=== PATIENT | female | born 1945 | race Caucasian/White ===

== ENCOUNTER 2021-10-04 05:23 | Inpatient (IN) | payer MEDICARE ==
[~2021-10-04] VITALS: Ht 157.5 cm; Wt 54.0 kg
--- NOTE | 2021-10-04 05:27 | PHYS DOC ---
General Adult HPI: HPI: ".. I ve been short of breath.. since saturday.. feel like I got a fever.. some headache.. just rajni hurt all over..." Patient is a 76 year old female who presents with above hx and complaints coughing, hoarse voice, shortness of air, fever, chills, malaise, arthralgia, myalgia, cephalgia,and sore throat since Saturday10/02/21. Patient has completed flu vaccination as well as Moderna x 3. No hx of pneumovax. Pt. denies any recent change in medications. Patient has been compliant with her cardiac meds. Patient has past medical history of hypertension CHF, cardiomyopathy, coronary artery disease, elevated cholesterol, psoriasis, arthritis,, COPD, hypothyroid . Pt. patient denies any recent travel, significant ill contacts or changes in her baseline medications. Patient. normally follows with Dr. Cedeno and Dr. Fernández for cardiology. (FEDERICO LICONA MD) Review of Systems: Review of Systems: Constitutional: Complains of fever and chills Eyes: Denies change in visual acuity HENT: Complains of nasal congestion and sore throat Respiratory: Complains of cough and shortness of breath Cardiovascular: Denies chest pain or edema GI: Denies abdominal pain, nausea, vomiting, bloody stools or diarrhea : Denies dysuria Musculoskeletal: Complains of myalgia, arthralgia and malaise Integument: Denies rash Neurologic: Mild headache. Denies, focal weakness or sensory changes Endocrine: Denies polyuria or polydipsia Lymphatic: Denies swollen glands Psychiatric: Denies depression or anxiety (FEDERICO LICONA MD) Family History: Family History: Noncontributory to presentation (FEDERICO LICONA MD) Current Medications: Current Meds: See nursing for home meds (FEDERICO LICONA MD) Allergies: Allergies: See nursing (FEDERICO LICONA MD) Physical Exam: PE: Constitutional: Moderate acute distress, non-toxic appearance. [] HENT: Normocephalic, atraumatic, bilateral external ears normal, oropharynx moist, injected pharynx, no oral exudates, nose swollen turbinates and clear rhinorrhea Eyes: PERRLA, EOMI, conjunctiva normal, no discharge. [] Neck: Normal range of motion, no tenderness, supple, no stridor. [] Cardiovascular: Tachycardia heart rate regular rhythm, no murmur. PMI to left Lungs & Thorax: Bilateral breath sounds equal apex with scattered wheezes throughout on auscultation []. Base crackles and rhonchi Rt > Lt. Abdomen: Bowel sounds normal, soft, no tenderness, no masses, no pulsatile masses. Old surgery scars. Skin: Warm, dry, no erythema, no rash. Poor turgor. Back: No tenderness, no CVA tenderness. [] Extremities: No tenderness, no cyanosis, no clubbing, ROM intact, no edema. No cording appreciated Neurologic: Alert and oriented X 3, moves all extremities on request, has distal sensory,, no focal deficits noted. [] Psychologic: Affect anxious, judgement normal, mood normal. [] (FEDERICO LICONA MD) EKG: EKG: Pending at shift change.[] (FEDERICO LICONA MD) EKG: EKG is interpreted at 0657 Rhythm is sinus Rate is 87 bpm Shipman is left LBBB (old) No STEMI (LINDA AVELAR DO) Radiology/Procedures: Radiology/Procedures: Pending at shift change.[] [place] [address] IMAGING REPORT Signed PATIENT: EMY LEOS ACCOUNT: [id number] : 1945 LOCATION: ER AGE: 76 SEX: F EXAM STATUS: REG ER ORD. PHYSICIAN: LINDA AVELAR DO REASON: cough PROCEDURE: PORTABLE CHEST 1V EXAM: AP View of the chest DATE: 10/04/2021 6:40 AM INDICATION: Reason: cough / Spl. Instructions: / History: COMPARISON: No Prior FINDINGS: The heart is not enlarged. Mediastinal and hilar contours are normal. Patchy bibasilar airspace opacities likely atelectasis or developing consolidation. No pleural effusion or pneumothorax. IMPRESSION: Patchy bibasilar airspace opacities likely atelectasis or developing consolidation. This is greater in the right lung base. Electronically signed by: Randell Norman MD (10/04/2021 6:52 AM) MAGARY DICTATED AND SIGNED BY: RANDELL NORMAN MD DATE: 10/04/21651 CC: ЕКАТЕРИНА CEDENO MD; LINDA AVELAR DO ~ (FEDERICO LICONA MD) Radiology/Procedures: IMAGING REPORT Signed PATIENT: EMY LEOS ACCOUNT: [id number] : 1945 LOCATION: ER AGE: 76 SEX: F EXAM STATUS: REG ER ORD. PHYSICIAN: LINDA AVELAR DO REASON: cough PROCEDURE: PORTABLE CHEST 1V EXAM: AP View of the chest DATE: 10/04/2021 6:40 AM INDICATION: Reason: cough / Spl. Instructions: / History: COMPARISON: No Prior FINDINGS: The heart is not enlarged. Mediastinal and hilar contours are normal. Patchy bibasilar airspace opacities likely atelectasis or developing consolidation. No pleural effusion or pneumothorax. IMPRESSION: Patchy bibasilar airspace opacities likely atelectasis or developing consolidation. This is greater in the right lung base. Electronically signed by: Randell Norman MD (10/04/2021 6:52 AM) MAGRAY DICTATED AND SIGNED BY: RANDELL NORMAN MD DATE: 10/04/21651 CC: ЕКАТЕРИНА CEDENO MD; LINDA AVELAR DO ~ (LINDA AVELAR DO) Heart Score: C/O Chest Pain: No Risk Factors: Risk Factors: DM, Current or recent (<one month) smoker, HTN, HLP, family history of CAD, obesity. Risk Scores: Score 0 - 3: 2.5% MACE over next 6 weeks - Discharge Home Score 4 - 6: 20.3% MACE over next 6 weeks - Admit for Clinical Observation Score 7 - 10: 72.7% MACE over next 6 weeks - Early Invasive Strategies (FEDERICO LICONA MD) C/O Chest Pain: No (LINDA AVELAR DO) Course & Med Decision Making: Course & Med Decision Making Pertinent Labs and Imaging studies reviewed. (See chart for details) Patient endorsed to Dr. Avelar at shift change . She will make disposition. Impression: 1. Dyspnea 2. COPD exacerbation 3. Hx. CADz 4. Pneumonia [] (FEDERICO LICONA MD) Course & Med Decision Making This patient was initially seen by Dr. Licona. Please see his note for details of H&P and HPI. I assumed care at 0600 this morning. Chest x-ray, blood work, EKG are all pending at that time. I reviewed the patient's EKG, see above. She has a chronic left bundle branch block. She denies chest pain. She is given a DuoNeb. I ordered Solu-Medrol. Chest x-ray shows a developing right lower lobe infiltrate. She has had a significant cough for several days. She is treated empirically for community-acquired pneumonia. I ordered IV Rocephin and p.o. Zithromax. She requested something for her headache, she is given Tylenol. The patient is not hypoxic, but she does appear to be at least moderately ill. She feels most comfortable with the plan for admission. I contacted Dr. Keller for admission, he accepts. (LINDA AVELAR DO) Dragon Disclaimer: Dragon Disclaimer: This electronic medical record was generated, in whole or in part, using a voice recognition dictation system. (FEDERICO LICONA MD) Departure Departure: Impression: Primary Impression: Community acquired pneumonia Qualified Codes: J18.9 - Pneumonia, unspecified organism Additional Impression: COPD exacerbation Disposition: ADMITTED INPATIENT Admitting Physician: Isrrael Keller (LINDA AVELAR DO) Condition: STABLE Referrals: ЕКАТЕРИНА CEDENO MD (PCP) Dragon Disclaimer This chart was dictated in whole or in part using Voice Recognition software in a busy, high-work load, and often noisy Emergency Department environment. It may contain unintended and wholly unrecognized errors or omissions. (FEDERICO LICONA MD) Dragon Disclaimer This chart was dictated in whole or in part using Voice Recognition software in a busy, high-work load, and often noisy Emergency Department environment. It may contain unintended and wholly unrecognized errors or omissions. (FEDERICO LICONA MD) FEDERICO LICONA MD Oct 04, 2021 05:27 LINDA AVELAR DO Oct 04, 2021 07:05
[2021-10-04] MEDS ORDERED: IV RINGERS SOLUTION,LACTATED 1,000 ML IV SCH (06:00)
[2021-10-04] MEDS ORDERED: ALBUTEROL SULFATE 8GM INHALER. INH ONE (06:00)
[2021-10-04 06:34] LABS: BASO # 0.1 x10^3/uL (0.0-0.2); BASO % 1 % (0-3); EOS % 0 % (0-3); HEMATOCRIT 43.4 % (36.0-47.0); HEMOGLOBIN 14.4 g/dL (12.0-15.5); LYMPH # 0.9 x10^3/uL (1.0-4.8); LYMPH % 9 % (24-48); MEAN CORPUSCULAR HEMOGLOBIN 30 pg (25-35); MEAN CORPUSCULAR HGB CONC 33 g/dL (31-37); MEAN CORPUSCULAR VOLUME 91 fL (79-100); MONO # 0.8 x10^3/uL (0.0-1.1); MONO % 9 % (0-9); NEUT # 7.9 x10^3uL (1.8-7.7); NEUT % 81 % (31-73); PLATELET COUNT 290 x10^3/uL (140-400); RED BLOOD COUNT 4.78 x10^6/uL (3.50-5.40); RED CELL DISTRIBUTION WIDTH 13.7 % (11.5-14.5); WHITE BLOOD COUNT 9.7 x10^3/uL (4.0-11.0)
[2021-10-04 06:54] LABS: INFLUENZA A PATIENT NEGATIVE (NEGATIVE); INFLUENZA B PATIENT NEGATIVE (NEGATIVE)
--- NOTE | 2021-10-04 06:54 | RAD ---
EXAM: AP View of the chest DATE: 10/04/2021 6:40 AM INDICATION: Reason: cough / Spl. Instructions: / History: COMPARISON: No Prior FINDINGS: The heart is not enlarged. Mediastinal and hilar contours are normal. Patchy bibasilar airspace opacities likely atelectasis or developing consolidation. No pleural effusion or pneumothorax. IMPRESSION: Patchy bibasilar airspace opacities likely atelectasis or developing consolidation. This is greater in the right lung base. Electronically signed by: Randell Collins MD (10/04/2021 6:52 AM) ILIANA
--- NOTE | 2021-10-04 07:10 | EKG ---
[address] [address] Test Date: 2021-10-04 Test Time: 06:55:05 Pat Name: EMY LEOS Department: Room: Gender: F Certified Marine Mechanic: DARRELL : 1945 Requested By: FEDERICO WILSON Order Number: [id number] Reading MD: Carlso Alberto Abreu Measurements Intervals [place] Rate: 87 P: 54 LA: 150 QRS: -34 QRSD: 130 T: 116 QT: 408 QTc: 492 Interpretive Statements SINUS RHYTHM ABNORMAL LEFT AXIS DEVIATION LEFT BUNDLE BRANCH BLOCK ABNORMAL ECG RI6.02 No previous ECG available for comparison Electronically Signed On 10-06-2021 13:35:12 CDT by Carlos Alberto Abreu
[2021-10-04 07:16] LABS: CALCIUM 8.5 mg/dL (8.5-10.1); CREATININE 0.8 mg/dL (0.6-1.0); GFR 70.1; POTASSIUM 3.4 mmol/L (3.5-5.1)
[2021-10-04] MEDS ORDERED: IV NORMAL SALINE 100ML 100 ML ONE (07:26)
[2021-10-04 07:29] LABS: ALBUMIN 2.9 g/dL (3.4-5.0); DIRECT BILIRUBIN 0.2 mg/dL (0.0-0.2); MAGNESIUM 1.7 mg/dL (1.8-2.4); TOTAL BILIRUBIN 0.7 mg/dL (0.2-1.0); TOTAL PROTEIN 6.6 g/dL (6.4-8.2)
[2021-10-04] MEDS ORDERED: ONDANSETRON PF 4 MG/2 ML VIAL. IVP PRN (07:30)
[2021-10-04] MEDS ORDERED: methylPREDNISolone SOD SUCC PF 125 MG/2 ML VIAL. IV ONE (07:30)
[2021-10-04] MEDS ORDERED: AZITHROMYCIN 250 MG TABLET. PO ONE (07:30)
[2021-10-04] MEDS ORDERED: ACETAMINOPHEN 500 MG TABLET PO ONE (07:30)
[2021-10-04] MEDS ORDERED: IV NORMAL SALINE 1,000ML 1,000 ML IV ONE (07:30)
[2021-10-04] MEDS ORDERED: ACETAMINOPHEN 325 MG TABLET PO PRN (07:30)
[2021-10-04] MEDS: IPRATRPIUM/ALBUTEROL 0.5/2.5MG 3 ML NEBU. NEB SCH ×4 (08:45→20:51)
[2021-10-04] MEDS ORDERED: [UNRECOGNIZED DRUG - OTHER] PO (10:19)
[2021-10-04] MEDS ORDERED: FURO-69 PO (10:19)
[2021-10-04 10:21] VITALS: BP 123/68
[2021-10-04] MEDS ORDERED: CRESTOR20 MG PO (10:23)
[2021-10-04] MEDS ORDERED: TRIA15CR2 TP (10:23)
[2021-10-04] MEDS ORDERED: BIMA2.5D OP (10:23)
[2021-10-04] MEDS ORDERED: LISI5TAB15 PO (10:23)
[2021-10-04] MEDS ORDERED: ASPI-889 PO (10:23)
[2021-10-04 10:51] LABS: % ATYL 5 % (0-0); % BANDS 26 % (0-9); % LYMPHS 15 % (24-48); % MONOS 9 % (0-10); % SEGS 45 % (35-66)
[2021-10-04 10:58] LABS: PLT ESTIMATE ADEQUATE (ADEQUATE)
[2021-10-04] MEDS: methylPREDNISolone SOD SUCC PF 125 MG/2 ML VIAL. IV SCH ×2 (13:50→21:00)
--- NOTE | 2021-10-04 14:37 | HP ---
DATE OF SERVICE: 10/04/2021 ADMIT DATE: 10/04/2021 ATTENDING PHYSICIAN: Dr. Keller. CHIEF COMPLAINT: Cough and fevers. HISTORY OF PRESENT ILLNESS: The patient is a 76-year-old female, nonsmoker. She is admitted from the ED with a 3-day history of increasing shortness of breath, cough, a little laryngitis, feeling weak. Workup in the ED showed bibasilar infiltrates consistent with community-acquired pneumonia. Her rapid screen was negative for coronavirus and influenza. She has been fully vaccinated with boosters. She is a nonsmoker. She is nevertheless admitted with community-acquired pneumonia. She was given a dose of Rocephin and Zithromax in the ED. PAST MEDICAL HISTORY: Significant for essential hypertension, chronic asthma at and hyperlipidemia. ALLERGIES: SHE HAS ALLERGIES TO HYDROCODONE, EXACT REACTION IS UNCLEAR. CURRENT MEDICATIONS: Include aspirin, Lumigan eyedrops, Lasix, lisinopril, Crestor, triamcinolone cream and ____. SOCIAL HISTORY: She is a nonsmoker, nondrinker. FAMILY HISTORY: Her mom at age 80 of complications of diabetes. Her father was killed at age 32. He had been a humanities teacher in [employer] [place]. He had sustained trauma and was killed in a motorcycle accident. She is . Her has recently. She has 2 grown sons. REVIEW OF SYSTEMS: Significant for sinus congestion, low-grade fevers. No nausea. No hematemesis. All other systems reviewed and turned to be negative. PHYSICAL EXAMINATION: GENERAL: When I saw her, this is a pleasant, middle-aged female. VITAL SIGNS: Initial vital signs showed a blood pressure of 123/68 mmHg. She is afebrile. Oxygen saturation 93% on room air. HEENT: Head is without trauma. Pupils are reactive. Sclerae nonicteric. Oropharynx is clear. NECK: Supple. LUNGS: Bibasilar crackles. CARDIOVASCULAR: Showed regular heart tones. No gallops. ABDOMEN: Soft. EXTREMITIES: Without edema. NEUROLOGIC: Function focally intact. SKIN: Warm and dry. PERTINENT LABORATORY STUDIES: Hemoglobin on admission was 14.4 g/dL, white count 9700. Electrolytes within normal range. Potassium slightly diminished at 3.4 mEq. Transaminases are normal. Serology negative for coronavirus and influenza A and B. Chest x-ray demonstrated bilateral infiltrate consistent with community-acquired pneumonia. ASSESSMENT: 1. A 76-year-old female with community-acquired pneumonia, bibasilar. 2. Exacerbation of chronic obstructive pulmonary disease. She had asthma component. She is a nonsmoker. 3. Essential hypertension. 4. Sinus congestion due to allergic rhinitis. PLAN: 1. Admit to the inpatient unit. 2. We shall continue her Rocephin and Zithromax. 3. Some home meds were continued. 4. Pseudoephedrine and loratadine for her sinuses. DOMINGO/ASHER/MADAY DR: Sharri TID: [id number] CC: ЕКАТЕРИНА HUGHES MD
[2021-10-04 15:13] VITALS: BP 111/69
[2021-10-04 19:57] VITALS: BP 127/78
[2021-10-04] MEDS: PSEUDOEPHEDRINE ER 120 MG TABLET.ER. PO SCH (20:33)
[2021-10-04 23:44] VITALS: BP 127/71
[2021-10-05] MEDS: IPRATRPIUM/ALBUTEROL 0.5/2.5MG 3 ML NEBU. NEB SCH ×4 (05:18→20:40)
[2021-10-05 06:05] VITALS: BP 147/89
[2021-10-05] MEDS: methylPREDNISolone SOD SUCC PF 125 MG/2 ML VIAL. IV SCH ×3 (06:33→19:30)
[2021-10-05] MEDS: CETIRIZINE HCL 10 MG TABLET PO SCH (07:49)
[2021-10-05] MEDS: LACTOBACILLUS RHAMNOSUS GG 1 CAPSULE. PO SCH ×2 (07:49→19:25)
[2021-10-05] MEDS: AZITHROMYCIN 250 MG TABLET. PO SCH (07:49)
[2021-10-05] MEDS: PSEUDOEPHEDRINE ER 120 MG TABLET.ER. PO SCH ×2 (07:50→19:25)
[2021-10-05 11:16] VITALS: BP 128/71
[2021-10-05 15:54] VITALS: BP 109/66
[2021-10-05] MEDS: BENZOCAINE/MENTHOL LOZNGE 18'S BOX. PO PRN (19:26)
[2021-10-05 20:51] VITALS: BP 135/84
[2021-10-05 23:56] VITALS: BP 117/74
--- NOTE | 2021-10-06 02:56 | PN ---
DATE: 10/05/2021 ATTENDING PHYSICIAN: Isrrael Keller M.D. SUBJECTIVE: The patient is breathing better from this standpoint; her sinuses are not congested. She was started on Zyrtec-D. She is still dyspneic with minimal exertion. Her oxygen saturations are marginal at baseline. OBJECTIVE FINDINGS: VITAL SIGNS: Blood pressure this morning is 127/71, oxygen saturation 92% on 2 liters by nasal cannula, pulse is 80 and regular. She is afebrile. HEENT: Head is without trauma. Pupils are reactive. Sclerae nonicteric. Oropharynx clear. NECK: Supple. No bruits. LUNGS: Coarse rhonchi, more prominent on the right side, but also present in the left base. CARDIOVASCULAR: Showed distant heart tones. No gallop. ABDOMEN: Soft. EXTREMITIES: Without edema. NEUROLOGIC: Function focally intact. IMAGING: I did review her x-ray on admission. She has a small infiltrate, but clinically she appears worse than the chest x-ray presenting; I believe the x-ray is lagging the clinical response. ASSESSMENT: A 76-year-old female with: 1. Community-acquired pneumonia, bibasilar. 2. Exacerbation of chronic obstructive pulmonary disease. She has a strong asthma component. She is a nonsmoker. 3. Essential hypertension. 4. Allergic rhinitis, improved. 5. Mild laryngitis, improved. PLAN: 1. Continue her Zithromax and Rocephin as ordered. 2. Home meds, continue. 3. Continue the Zyrtec-D. 4. Tentative discharge for tomorrow, with oral antibiotics. DOMINGO DR: Sharri TID: [id number] CC: ЕКАТЕРИНА HUGHES MD
[2021-10-06] MEDS: methylPREDNISolone SOD SUCC PF 125 MG/2 ML VIAL. IV SCH ×3 (05:25→21:35)
[2021-10-06] MEDS: IPRATRPIUM/ALBUTEROL 0.5/2.5MG 3 ML NEBU. NEB SCH ×4 (05:30→21:00)
[2021-10-06 06:38] VITALS: BP 131/88
[2021-10-06] MEDS: BENZOCAINE/MENTHOL LOZNGE 18'S BOX. PO PRN (08:27)
[2021-10-06] MEDS: PSEUDOEPHEDRINE ER 120 MG TABLET.ER. PO SCH ×2 (08:29→21:34)
[2021-10-06] MEDS: AZITHROMYCIN 250 MG TABLET. PO SCH (08:30)
[2021-10-06] MEDS: LACTOBACILLUS RHAMNOSUS GG 1 CAPSULE. PO SCH ×2 (08:30→21:33)
[2021-10-06] MEDS: CETIRIZINE HCL 10 MG TABLET PO SCH (08:31)
[2021-10-06] MEDS ORDERED: methylPREDNISolone SOD SUCC PF 125 MG/2 ML VIAL. IV ONE (10:00)
[2021-10-06 11:21] VITALS: BP 130/77
[2021-10-06 15:00] VITALS: BP 147/81
[2021-10-06 19:00] VITALS: BP 152/86
--- NOTE | 2021-10-06 19:03 | RAD ---
XR CHEST 1V Clinical Indication: Reason: pneumonia / Spl. Instructions: / History: Comparison: AP chest, 2 days ago. Findings: The cardiomediastinal silhouette is normal. Bibasilar airspace opacities are worse. There is no pneum othorax. No pleural effusion is appreciated. No acute bone abnormality. IMPRESSION: Bibasilar airspace opacities are worse. Electronically signed by: Pedro Echevarria MD (10/06/2021 7:00 PM) [facility]
[2021-10-06 19:58] LABS: CALCIUM 9.3 mg/dL (8.5-10.1); GFR 54.2; MAGNESIUM 1.9 mg/dL (1.8-2.4)
[2021-10-06 23:30] VITALS: BP 154/81
[2021-10-07 05:14] VITALS: BP 155/91
[2021-10-07] MEDS: IPRATRPIUM/ALBUTEROL 0.5/2.5MG 3 ML NEBU. NEB SCH (05:24)
--- NOTE | 2021-10-07 06:36 | PN ---
DATE: 10/06/2021 ATTENDING PHYSICIAN: Dr. Keller. SUBJECTIVE: She is still dyspneic with minimal exertion. We did exercise oximetry. She desaturated a bit. OBJECTIVE FINDINGS: VITAL SIGNS: Blood pressure this morning is 131/88, pulse is 88 and regular. She is afebrile. Oxygen saturation 92% on 2 liters at rest. HEENT: Head is without trauma. Pupils are reactive. Sclerae nonicteric. Oropharynx is clear. NECK: Supple, no bruits. LUNGS: Coarse rhonchi bilaterally, more prominent on the right side. CARDIOVASCULAR: Showed regular heart tones. ABDOMEN: Soft. EXTREMITIES: Without edema. NEUROLOGIC FINDINGS: Focally intact. Speech is fluent. Her voice is coming back. ASSESSMENT: 1. A 76-year-old female with acute on chronic respiratory failure. 2. Chronic obstructive pulmonary disease, more asthmatic component. 3. Laryngitis, improved. 4. Hypoxemia with exertion. 5. Allergic rhinitis, resolved. PLAN: 1. Continue antibiotics. 2. Empiric corticosteroids today. 3. Follow up chest x-ray. 4. Continue Zyrtec-D. 5. Tentative discharge plans later this week. DOMINGO/VENKATA/MADAY DR: DOMINGO/jesus TID: [id number] CC: ЕКАТЕРИНА HUGHES MD
[2021-10-07] MEDS: methylPREDNISolone SOD SUCC PF 125 MG/2 ML VIAL. IV SCH (06:40)
[2021-10-07] MEDS: LACTOBACILLUS RHAMNOSUS GG 1 CAPSULE. PO SCH (08:04)
[2021-10-07] MEDS: AZITHROMYCIN 250 MG TABLET. PO SCH (08:05)
[2021-10-07] MEDS: CETIRIZINE HCL 10 MG TABLET PO SCH (08:05)
[2021-10-07] MEDS: PSEUDOEPHEDRINE ER 120 MG TABLET.ER. PO SCH (08:06)
[2021-10-07 10:33] VITALS: BP 162/99
--- NOTE | 2021-10-07 20:12 | DS ---
DATE OF DISCHARGE: 10/07/2021 ATTENDING PHYSICIAN: Dr. Keller. FINAL DISCHARGE DIAGNOSES: 1. Community-acquired pneumonia, bibasilar. 2. Exacerbation of asthma. 3. Essential hypertension. 4. Allergic rhinitis. 5. Mild hypoxemia, improved. HISTORY AND PHYSICAL: The patient is a pleasant, active 76-year-old female. She was admitted with increase in shortness of breath or dyspnea, some laryngitis. Chest x-ray, evidence of bibasilar pneumonia. PHYSICAL EXAMINATION: Please see the dictated note. PERTINENT LABORATORY AND X-RAY STUDIES: Followup chest x-ray was lagging the clinical response. This will be followed up as an outpatient. Admission hemoglobin was 14.4 g/dL, white count 9700. Electrolytes all within normal range. Nonfasting blood sugar 93. TSH was normal. Transaminases were normal. COURSE IN THE HOSPITAL: The patient was admitted. She received 4 full days of intravenous Rocephin and Zithromax. Standard therapy, supplemental oxygen was weaned down, her sats were still marginal. We made arrangement for home oxygen 2 liters by nasal cannula to be delivered at time of discharge. Hopefully, this will be temporary. On the fourth hospital day, she was discharged home with cephalexin 500 mg p.o. t.i.d. for 7 more days, Zithromax 250 p.o. daily for 6 more days. Other home meds are unchanged. They include continuation of her aspirin, Lumigan eyedrops, Lasix 20 mg p.r.n., lisinopril, Crestor, and triamcinolone cream. She will follow up with Dr. Hughes in 1 week's time and have a followup chest x-ray. The patient was then discharged from our hospital in stable condition with explicit drug and followup care. Total discharge time spent 39 minutes. VIVIANA/ARLEEN DR: Sharri TID: [id number] CC: ЕКАТЕРИНА HUGHES MD
== END 2021-10-07 13:53 | disposition home health service (06) | DRG 193 ==
LOC: ER 05:23 → ER HOLD 07:26 → 1 SOUTH 09:52
PROVIDERS: ADMIT Hospitalist; ATTEND Hospitalist
DX: J18.9 Pneumonia, unspecified organism (principal); J96.21 Acute and chronic respiratory failure with hypoxia; J44.0 Chronic obstructive pulmonary disease with (acute) lower respiratory infection; J44.1 Chronic obstructive pulmonary disease with (acute) exacerbation; J45.901 Unspecified asthma with (acute) exacerbation; J98.11 Atelectasis; E78.5 Hyperlipidemia, unspecified; I10 Essential (primary) hypertension; I44.7 Left bundle-branch block, unspecified; Z83.3 Family history of diabetes mellitus; Z88.8 Allergy status to other drugs, medicaments and biological substances
CPT/HCPCS: 36415; 71045; 80048; 80076; 82550; 83690; 83735; 83880; 84443; 84484; 85007; 85025; 85379; 85610; 85730; 87040; 87070; 87428; 87880; 93005; 94640; 94760; 96361; 96365; 96366; 96375; J0696; J2930; J7120; U0003; 94664; 99285-25

== ENCOUNTER → 2021-10-13 | Outpatient (CLI) | payer MEDICARE ==
[2021-10-07 10:33] VITALS: BP 162/99
[~2021-10-13] MED LIST: ASPI-889 PO; BIMA2.5D OP; CRESTOR20 MG PO; FURO-69 PO; LISI5TAB15 PO; TRIA15CR2 TP; [UNRECOGNIZED DRUG - OTHER] PO
--- NOTE | 2021-10-13 15:20 | RAD ---
EXAM: XR CHEST 2V 10/13/2021 10:58 AM CLINICAL INDICATION: Pneumonia COMPARISON: Chest radiograph 10/06/2021 TECHNIQUE: PA and lateral views of the chest FINDINGS: The heart is normal in size. Streaky bibasilar opacities have resolved. There is no consol idation, pleural effusion, or pneumothorax. Mild thoracic scoliosis. IMPRESSION: Improved aeration of the lung bases. Electronically signed by: Bianka Casper MD (10/13/2021 3:18 PM) [id number]
== END ==
LOC: RAD 10:38
PROVIDERS: ATTEND Family Medicine
DX: M41.84 Other forms of scoliosis, thoracic region (principal); J18.9 Pneumonia, unspecified organism
CPT/HCPCS: 71046